=== PATIENT | male | born 1995 | race Caucasian/White ===

== ENCOUNTER → 2020-04-11 | Outpatient (REF) | payer OTHER ==
[2020-04-11 13:21] LABS: HEMATOCRIT 41.2 % (42.0-52.0); HEMOGLOBIN 13.7 g/dl (13.5-17.5); MEAN CORPUSCULAR HEMOGLOBIN 30.5 pg (27.0-33.0); MEAN CORPUSCULAR HGB CONC 33.3 g/dl (32.0-36.5); MEAN CORPUSCULAR VOLUME 91.8 fl (80.0-96.0); PLATELET COUNT, AUTOMATED 274 10^3/uL (150-450); RED BLOOD COUNT 4.49 10^6/uL (4.30-6.10); WHITE BLOOD COUNT 3.7 10^3/uL (4.0-10.0)
[2020-04-11 13:36] LABS: ALBUMIN 4.1 GM/DL (3.2-5.2); ALT/SGPT 20 U/L (12-78); BILIRUBIN,TOTAL 0.4 MG/DL (0.2-1.0); BLOOD UREA NITROGEN 5 MG/DL (7-18); C REACTIVE PROTEIN QUANTITATIV 0.34 MG/DL (0.00-0.30); CALCIUM LEVEL 8.8 MG/DL (8.5-10.1); CARBON DIOXIDE LEVEL 28 MEQ/L (21-32); CHLORIDE LEVEL 107 MEQ/L (98-107); CREATININE FOR GFR 0.69 MG/DL (0.70-1.30); FREE T4 1.02 NG/DL (0.76-1.46); GLOMERULAR FILTRATION RATE > 60.0 (>60); GLUCOSE, FASTING 91 MG/DL (70-100); POTASSIUM SERUM 3.8 MEQ/L (3.5-5.1); SODIUM LEVEL 137 MEQ/L (136-145); THYROID STIMULATING HORMONE 0.366 uIU/ML (0.358-3.740); TOTAL PROTEIN 7.2 GM/DL (6.4-8.2)
[2020-04-11 13:38] LABS: TOTAL 25(OH) VITAMIN D 19.3 NG/ML (30.0-100.0)
[2020-04-11 13:44] LABS: ERYTHROCYTE SEDIMENTATION RATE 6 mm/hr (0-15)
[2020-04-12 17:07] LABS: ANA (HEP2) Negative (.)
== END ==
LOC: M SFHCPLAZ 11:27
PROVIDERS: ATTEND Nurse Practitioner Family
DX: F90.9 Attention-deficit hyperactivity disorder, unspecified type (principal); M25.60 Stiffness of unspecified joint, not elsewhere classified

== ENCOUNTER → 2020-10-31 | Outpatient (CLI) | payer OTHER ==
--- NOTE | 2020-10-31 16:02 | REPPI ---
INDICATION: DORSALGIA. COMPARISON: Lumbar spine CT dated 04/21/2016. TECHNIQUE: There are five views. FINDINGS: Vertebral body heights, interspacing and alignment are normal. The pedicles, facets and sacroiliac articulations are unremarkable. There is no spondylolysis or spondylolisthesis. IMPRESSION: Negative plain film study of the lumbar spine. <Electronically signed by Shiva Guaman > 10/31/20 [id number]
[2020-10-31 18:28] LABS: C REACTIVE PROTEIN QUANTITATIV < 0.30 MG/DL (0.00-0.30); FREE T4 0.89 NG/DL (0.76-1.46); RHEUMATOID FACTOR QUANT < 10.0 IU/ML (<15.0); TOTAL 25(OH) VITAMIN D 26.1 NG/ML (30.0-100.0)
== END ==
LOC: M PLAIMG 15:08
PROVIDERS: ATTEND Nurse Practitioner Family
DX: M25.50 Pain in unspecified joint (principal); R63.6 Underweight; E55.9 Vitamin D deficiency, unspecified; M54.9 Dorsalgia, unspecified

== ENCOUNTER → 2021-06-21 | Outpatient (CLI) | payer OTHER | LOC: M PLALAB 13:20 | PROVIDERS: ATTEND Nurse Practitioner Family | DX: E55.9 Vitamin D deficiency, unspecified (principal) ==

== ENCOUNTER 2021-09-24 13:16 | Emergency (ER) | payer OTHER ==
[~2021-09-24] VITALS: Ht 180.3 cm; Wt 64.2 kg
[2021-09-24 13:16] VITALS: BP 134/68
[2021-09-24] MEDS ORDERED: ACET650T15 PO (13:23)
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
[2021-09-24 15:08] LABS: RSV AMPLIFICATION NEGATIVE (NEGATIVE)
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
== END 2021-09-24 16:09 | disposition left against medical advice (07) ==
LOC: M ED 13:16
DX: Z53.21 Procedure and treatment not carried out due to patient leaving prior to being seen by health care provider (principal)

== ENCOUNTER 2025-07-10 12:28 | Emergency (ER) | payer OTHER ==
[~2025-07-10] VITALS: Ht 180.3 cm; Wt 57.5 kg
[~2025-07-10 12:28] MED LIST: ACET-1515 PO
[2025-07-10] MEDS ORDERED: ACET-683 PO (12:45)
[2025-07-10 14:03] VITALS: BP 142/78; TEMP 98.8; O2SAT 99
== END 2025-07-10 14:05 | disposition home or self-care (01) ==
LOC: M ED 12:28
DX: S46.911A Strain of unspecified muscle, fascia and tendon at shoulder and upper arm level, right arm, initial encounter (principal); X58.XXXA Exposure to other specified factors, initial encounter; Y92.9 Unspecified place or not applicable; Y93.9 Activity, unspecified; Y99.0 Civilian activity done for income or pay; R56.9 Unspecified convulsions; Z88.0 Allergy status to penicillin; Z88.2 Allergy status to sulfonamides